=== PATIENT | female | born 1990 | race Hispanic/Latino ===

== ENCOUNTER 2022-11-30 19:00 | Emergency (ER) | payer OTHER ==
[~2022-11-30] VITALS: Ht 165.1 cm; Wt 96.2 kg
[2022-11-30] MEDS ORDERED: IBUP-2070 PO (22:27)
[2022-11-30] MEDS ORDERED: CIPR7.5D OT (22:27)
[2022-11-30] MEDS ORDERED: AMOX1TAB16 PO (22:27)
[2022-11-30] MEDS ORDERED: KETOROLAC 30MG VIAL (30MG/ML) IM ONE (22:30)
[2022-11-30 22:49] LABS: INFLUENZA TYPE A NEGATIVE FOR TYPE A (NEG)
[2022-11-30 22:50] LABS: INFLUENZA TYPE B NEGATIVE FOR TYPE B (NEG)
[2022-11-30 23:07] VITALS: BP 135/62
== END 2022-11-30 23:10 | disposition home or self-care (01) ==
LOC: EDH 19:00
DX: H60.92 Unspecified otitis externa, left ear (principal); H66.92 Otitis media, unspecified, left ear; M19.90 Unspecified osteoarthritis, unspecified site; Z79.1 Long term (current) use of non-steroidal anti-inflammatories (NSAID); Z20.822 Contact with and (suspected) exposure to COVID-19
CPT/HCPCS: 99283; 87426; 87880; 87804 ×2; 96372; J1885